=== PATIENT | male | born 1945 | race Caucasian/White ===

== ENCOUNTER 2020-04-17 11:41 | Emergency (ER) | payer MEDICARE, BC ==
--- NOTE | 2020-04-17 12:37 | EDM.PDOC ---
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 pipe fell diagonally on his head , sustained a laceration to the scalp , did not pass out , no blurred vision , no neck pa in , no nausea or vomiting had to drive 45mins to get here to the ER , denies any LAZCANO , no symptoms Onset: Today Onset Date: 04/17/20 Duration: Hour(s): (1) Location: Reports: Head Quality: Reports: Ache, Dull Severity: Mild Improves with: Reports: None Worsens with: Reports: None Context: Reports: Trauma Associated Symptoms: Reports: No Other Symptoms - Related Data Allergies Allergy/AdvReac Type Severity Reaction Status Date / Time No Known Allergies Allergy Verified 04/17/20 12:40 Home Meds: Home Meds predniSONE [Prednisone] 10 mg PO DAILY 04/17/20 [History] ED ROS GENERAL - Review of Systems Review Of Systems: See Below Constitutional: Reports: No Symptoms HEENT: Reports: No Symptoms Respiratory: Reports: No Symptoms Cardiovascular: Reports: No Symptoms Endocrine: Reports: No Symptoms GI/Abdominal: Reports: No Symptoms Musculoskeletal: Reports: No Symptoms. Denies: Neck Pain Skin: Reports: Wound (on the scalp), Other (scalp laceration about 2.0cm , superficial ) Neurological: Reports: No Symptoms Psychiatric: Reports: No Symptoms Hematologic/Lymphatic: Reports: No Symptoms Immunologic: Reports: No Symptoms ED EXAM, HEAD INJURY - Physical Exam Exam: See Below Exam Limited By: No Limitations General Appearance: Alert, WD/WN Head: Atraumatic, Normocephalic Nexus Criteria: No: Posterior, Midline Cervical Tenderness Ears: Normal External Exam Nose: Normal Inspection Throat/Mouth: Normal Oropharynx Neck: Non-Tender, Full Range of Motion Respiratory: No Respiratory Distress, Lungs Clear Cardiovascular: Regular Rate, Rhythm GI/Abdominal Exam: Soft, Non-Tender Extremities: No Pedal Edema Neurologic: No Motor/Sensory Deficits, Normal Mood/Affect, Oriented x 3 - Maty Coma Score Best Eye Response ([place]): (4) Open Spontaneously Best Verbal Response ([place]): (5) Oriented Best Motor Response (Maty): (6) Obeys Commands ED LACERATION/WOUND & BRENNA PROC - Laceration/Wound Repair Left Head Lac/wound length in cm: 2 Appearance: Superficial Distal NVT: Neuro & Vascular Intact Skin Prep: Chlorhexidine (Hibiciens) Exploration/Debridement/Repair: Explored to Base, No Foreign Material Found Closed with: Margy (4) # of Sutures: 4 Sterile Dressing Applied: None Tetanus Status Addressed: Yes Complications: No Progress/Comments: pt had margy applied , tolerated this well Departure - Departure Time of Disposition: 12:50 Disposition: Home, Self-Care 01 Condition: Fair Clinical Impression: Laceration of scalp without complication, Head injury due to trauma, Concussion with no loss of consciousness - Discharge Information *PRESCRIPTION DRUG MONITORING PROGRAM REVIEWED*: Not Applicable *COPY OF PRESCRIPTION DRUG MONITORING REPORT IN PATIENT CHRISTIAN: Not Applicable Instructions: Head Injury, Adult, [id number], Facial or Scalp Contusion, [id number], Concussion, Adult, [id number] Referrals: Mayank Flores MD [Primary Care Provider] - Additional Instructions: 1) Staple removal in 10 days 2) Cold compress to the affected area today ( 2 times for 10 mins) 3) Take Tylenol for headache 4) If any symptoms of head injury appear ,return to ER immediately 5) Call with any other concerns
== END 2020-04-17 12:55 | disposition home or self-care (01) ==
LOC: FB.ED 11:41
DX: S06.0X0A Concussion without loss of consciousness, initial encounter (principal); S01.01XA Laceration without foreign body of scalp, initial encounter; W20.8XXA Other cause of strike by thrown, projected or falling object, initial encounter
CPT/HCPCS: 12001; 99282; 99282-25